=== PATIENT | male | born 1995 | race Caucasian/White ===

== ENCOUNTER 2021-05-10 07:56 | Outpatient (CLI) | payer OTHER | END 2021-05-10 23:59 | disposition home or self-care (01) | LOC: STAR 07:56 | PROVIDERS: ATTEND Surgery | DX: Z02.9 Encounter for administrative examinations, unspecified (principal) ==

== ENCOUNTER 2021-05-15 12:12 | Day surgery (SDC) | payer OTHER ==
[~2021-05-15] VITALS: Ht 180.3 cm; Wt 90.3 kg
[~2021-05-15 12:12] MED LIST: BUPIVACAINE/PF 0.5% ONE; EPINEPHRINE 1 MG/ML, 1ML ONE
[2021-05-15 12:47] VITALS: BP 144/88
[2021-05-15] MEDS ORDERED: CHLORHEXIDINE 15 ML UDC ONE (12:52)
[2021-05-15] MEDS ORDERED: LACTATED RINGERS 1,000 ML IV SCH (13:00)
[2021-05-15] MEDS ORDERED: CHLORHEXIDINE 15 ML UDC PO ONE (13:00)
[2021-05-15] MEDS ORDERED: MIDAZOLAM 1 MG/ML, 2ML ONE (14:30)
[2021-05-15] MEDS ORDERED: FENTANYL PF 250 MCG/5ML ONE (14:30)
[2021-05-15] MEDS ORDERED: HYDROmorphone 1 MG/ML, 1ML INJ ONE (15:44)
[2021-05-15] MEDS ORDERED: NEOSTIGMINE 1 MG/ML, 10ML ONE (15:45)
[2021-05-15] MEDS ORDERED: KETOROLAC 30 MG/1 ML ONE (15:45)
[2021-05-15] MEDS ORDERED: DEXAMETHASONE 4 MG/ML, 1ML ONE (15:45)
[2021-05-15] MEDS ORDERED: CEFAZOLIN 1,000 MG ONE (15:45)
[2021-05-15] MEDS ORDERED: PROPOFOL 10 MG/ML, 20ML ONE (15:45)
[2021-05-15] MEDS ORDERED: GLYCOPYRROLATE 0.2MG/1ML, 5ML ONE (15:45)
[2021-05-15] MEDS ORDERED: ROCURONIUM 10MG/ML,5ML ONE (15:45)
[2021-05-15] MEDS ORDERED: ONDANSETRON 2MG/ML, 2ML ONE (15:45)
[2021-05-15] MEDS ORDERED: LIDOCAINE-MPF 2% ,5ML ONE (15:45)
[2021-05-15] MEDS ORDERED: METHOCARBAMOL 1,000 MG in DEXTROSE 5% 100 ML IV PRN (16:00)
[2021-05-15] MEDS ORDERED: HYDROmorphone 1 MG/ML, 1ML INJ IVPush PRN (16:00)
[2021-05-15] MEDS ORDERED: LABETALOL 5MG/ML, 20ML IV PRN (16:00)
[2021-05-15] MEDS ORDERED: ACETAMINOPHEN 325 MG TABLET PO PRN (16:00)
[2021-05-15] MEDS ORDERED: OXYcodone 5 MG/5 ML ORAL.SOL UDC PO PRN (16:00)
[2021-05-15] MEDS ORDERED: MEPERIDINE/PF 25MG/0.5ML IVPush PRN (16:00)
[2021-05-15] MEDS ORDERED: MIDAZOLAM 1 MG/ML, 2ML IV PRN (16:00)
[2021-05-15] MEDS ORDERED: PROMETHAZINE 25 MG/ML, 1ML IVPush PRN (16:00)
[2021-05-15] MEDS ORDERED: ONDA4TAB13 SL (16:08)
[2021-05-15] MEDS ORDERED: HYDR-2214 PO (16:10)
[2021-05-15] MEDS ORDERED: FENTANYL PF 100 MCG/2ML ONE (16:13)
[2021-05-15] MEDS: FENTANYL PF 100 MCG/2ML IV PRN ×2 (16:15→16:26)
[2021-05-15] MEDS ORDERED: ACETAMINOPHEN 650 MG/20.3 ML UDC ONE (16:27)
[2021-05-15] MEDS ORDERED: OXYcodone 5 MG/5 ML ORAL.SOL UDC ONE (16:28)
[2021-05-15] MEDS ORDERED: ONDANSETRON 2MG/ML, 2ML IVPush PRN (16:30)
[2021-05-15] MEDS ORDERED: ENOXAPARIN 40 MG/0.4 ML SQ SCH (16:30)
[2021-05-15] MEDS ORDERED: morphine SULFATE 10 MG/ML, 1ML IVPush PRN (16:30)
[2021-05-15] MEDS ORDERED: IBUPROFEN 600 MG TABLET PO SCH (21:00)
== END 2021-05-15 20:05 | disposition home or self-care (01) ==
LOC: OUT 12:12
PROVIDERS: ATTEND Surgery
DX: K40.90 Unilateral inguinal hernia, without obstruction or gangrene, not specified as recurrent (principal); K66.0 Peritoneal adhesions (postprocedural) (postinfection)
CPT/HCPCS: 49650; C1781; J0171; J0690; J1100; J1170; J1885; J2250; J2405; J2704; J2710; J3010; J7120; S2900